=== PATIENT | female | born 1930 | race Asian ===

== ENCOUNTER 2017-03-15 05:31 | Emergency (ER) | payer OTHER ==
[~2017-03-15 05:31] MED LIST: ALPHAGAN P5 M1 OU; AMLODIPINE BES2.5 M1 PO; BETAGAN5 ML OD; BREO ELLIPTA1 PO1 IH; CIPRO500 MG PO; COL100 PO; GLUCOTROL5 MG PO; LOSARTAN POTASS1 TA6 PO; NORCO1 TA2 PO; ONGLYZA5 M1 PO; SYNTHROID0.075 MG PO; TRA100 PO; VITAMIN D32000 I2 PO; ZOCOR20 MG PO
[2017-03-15 06:52] LABS: BASOPHIL % 0.2 % (0-2); PLATELET COUNT 173 x10^3mcL (130-400); RED CELL DISTRIBUTION WIDTH 13.1 % (11.5-14.5)
[2017-03-15 07:09] LABS: CARBON DIOXIDE 29.4 mmol/L (21-32); CHLORIDE SERUM 99 mmol/L (98-107); GLUCOSE SERUM 157 mg/dL (74-106); POTASSIUM SERUM 4.1 mmol/L (3.5-5.1); SODIUM SERUM 135 mmol/L (136-145)
[2017-03-15 07:25] LABS: ALBUMIN 3.4 g/dL (3.4-5.0); ALKALINE PHOSPHATASE 41 U/L (46-116); ALT/SGPT 49 U/L (14-59); AST/SGOT 43 U/L (15-37); BILIRUBIN TOTAL 0.52 mg/dL (0.20-1.00); TOTAL PROTEIN, SERUM 7.9 g/dL (6.4-8.2)
[2017-03-15 09:03] VITALS: BP 132/74
[2017-03-16] MEDS ORDERED: SIMVASTATIN20 M1 PO (19:44)
[2017-03-16] MEDS ORDERED: LABETALOL HYDR300 MG PO (19:44)
[2017-03-16] MEDS ORDERED: GLIPIZIDE10 M2 PO (19:45)
[2017-03-16] MEDS ORDERED: LOSARTAN POTASS1 TAB PO (19:45)
[2017-03-16] MEDS ORDERED: GABAPENTIN100 M2 PO (19:46)
[2017-03-16] MEDS ORDERED: LANTUS SOLOS100 U/M1 (19:46)
[2017-03-16] MEDS ORDERED: TIMOPTIC-XE OCUM5 M2 OU (19:47)
[2017-03-16] MEDS ORDERED: NOVOLOG100 U/ML SC (19:47)
[2017-03-16] MEDS ORDERED: LATANOPROST (19:47)
[2017-03-16] MEDS ORDERED: SIMBRINZA8 ML OP (19:47)
[2017-03-16] MEDS ORDERED: PROAIR HFA8.5 GM IH (19:48)
[2017-03-16] MEDS ORDERED: ANORO ELLIPTA1 POW IH (19:48)
[2017-03-16] MEDS ORDERED: MASON NATURAL1000 IU PO (19:48)
== END 2017-03-15 09:03 | disposition home or self-care (01) ==
LOC: ED 05:31
PROVIDERS: Emergency Medicine
DX: J44.1 Chronic obstructive pulmonary disease with (acute) exacerbation (principal); J18.1 Lobar pneumonia, unspecified organism; E11.22 Type 2 diabetes mellitus with diabetic chronic kidney disease; I12.9 Hypertensive chronic kidney disease with stage 1 through stage 4 chronic kidney disease, or unspecified chronic kidney disease; N18.9 Chronic kidney disease, unspecified; E07.9 Disorder of thyroid, unspecified; Z88.0 Allergy status to penicillin; Z88.1 Allergy status to other antibiotic agents; Z88.8 Allergy status to other drugs, medicaments and biological substances
CPT/HCPCS: J1100; J7030; J7613; J7644; Q0092

== ENCOUNTER 2017-03-16 18:57 | Inpatient (IN) | payer OTHER ==
[~2017-03-16] VITALS: Ht 162.6 cm; Wt 78.5 kg
[2017-03-16 19:20] VITALS: Ht 162.6 cm; Wt 78.5 kg
[2017-03-16] MEDS ORDERED: SIMVASTATIN20 M1 PO (19:44)
[2017-03-16] MEDS ORDERED: LABETALOL HYDR300 MG PO (19:44)
[2017-03-16] MEDS ORDERED: LOSARTAN POTASS1 TAB PO (19:45)
[2017-03-16] MEDS ORDERED: GLIPIZIDE10 M2 PO (19:45)
[2017-03-16] MEDS ORDERED: GABAPENTIN100 M2 PO (19:46)
[2017-03-16] MEDS ORDERED: LANTUS SOLOS100 U/M1 (19:46)
[2017-03-16] MEDS ORDERED: TIMOPTIC-XE OCUM5 M2 OU (19:47)
[2017-03-16] MEDS ORDERED: LATANOPROST (19:47)
[2017-03-16] MEDS ORDERED: NOVOLOG100 U/ML SC (19:47)
[2017-03-16] MEDS ORDERED: SIMBRINZA8 ML OP (19:47)
[2017-03-16] MEDS ORDERED: MASON NATURAL1000 IU PO (19:48)
[2017-03-16] MEDS ORDERED: PROAIR HFA8.5 GM IH (19:48)
[2017-03-16] MEDS ORDERED: ANORO ELLIPTA1 POW IH (19:48)
[2017-03-16 20:58] LABS: PLATELET COUNT 206 x10^3mcL (130-400); RED CELL DISTRIBUTION WIDTH 13.1 % (11.5-14.5)
[2017-03-16 20:59] LABS: BASOPHIL % 0 % (0-2); CALCIUM 8.4 mg/dL (8.5-10.1); CARBON DIOXIDE 29.8 mmol/L (21-32); CHLORIDE SERUM 100 mmol/L (98-107); CREATININE SERUM 2.1 mg/dL (0.6-1.0); GLUCOSE SERUM 177 mg/dL (74-106); POTASSIUM SERUM 4.8 mmol/L (3.5-5.1); SODIUM SERUM 137 mmol/L (136-145)
[2017-03-16 21:03] LABS: ALKALINE PHOSPHATASE 42 U/L (46-116); ALT/SGPT 43 U/L (14-59); AST/SGOT 35 U/L (15-37); BILIRUBIN TOTAL 0.3 mg/dL (0.20-1.00); TOTAL PROTEIN, SERUM 7.8 g/dL (6.4-8.2)
[2017-03-16 21:07] LABS: ALBUMIN 3.3 g/dL (3.4-5.0)
[2017-03-16 22:21] LABS: CHOLESTEROL/HDL RATIO 3.1; MAGNESIUM 2.2 mg/dL (1.8-2.4); PHOSPHOROUS 2.9 mg/dL (2.5-4.9)
[2017-03-16 22:27] VITALS: BP 158/62
[2017-03-16 22:30] LABS: T3 TOTAL 0.65 ng/mL
[2017-03-16 22:42] LABS: FREE T4 1.15 ng/dL (0.76-1.46); FREE THYROXINE INDEX 3.6 ug/dL (1.4-4.5); T4(THYROXINE) 9.7 ug/dL (4.7-13.3)
[2017-03-17 01:40] VITALS: BP 158/62
[2017-03-17 01:55] LABS: microscopic required? YES; urine erythrocyte TRACE (NEGATIVE)
[2017-03-17 06:26] VITALS: BP 126/57
[2017-03-17 07:11] LABS: PLATELET COUNT 209 x10^3mcL (130-400); RED CELL DISTRIBUTION WIDTH 13.2 % (11.5-14.5)
[2017-03-17 07:18] LABS: BASOPHIL % 0 % (0-2)
[2017-03-17 07:23] LABS: CALCIUM 7.6 mg/dL (8.5-10.1); CARBON DIOXIDE 28.2 mmol/L (21-32); CHLORIDE SERUM 104 mmol/L (98-107); CREATININE SERUM 1.9 mg/dL (0.6-1.0); GLUCOSE SERUM 247 mg/dL (74-106); POTASSIUM SERUM 4.8 mmol/L (3.5-5.1); SODIUM SERUM 140 mmol/L (136-145)
[2017-03-17 08:55] VITALS: BP 159/69
[2017-03-17 13:45] VITALS: BP 140/69
[2017-03-17 18:42] VITALS: BP 142/71
[2017-03-17 22:46] VITALS: BP 132/72
[2017-03-18 05:11] VITALS: BP 118/61
[2017-03-18 06:32] LABS: PLATELET COUNT 176 x10^3mcL (130-400); RED CELL DISTRIBUTION WIDTH 13.1 % (11.5-14.5)
[2017-03-18 06:47] LABS: BASOPHIL % 0 % (0-2)
[2017-03-18 06:50] LABS: CALCIUM 8.1 mg/dL (8.5-10.1); CARBON DIOXIDE 27.3 mmol/L (21-32); CHLORIDE SERUM 103 mmol/L (98-107); CREATININE SERUM 1.5 mg/dL (0.6-1.0); GLUCOSE SERUM 213 mg/dL (74-106); POTASSIUM SERUM 4.4 mmol/L (3.5-5.1); SODIUM SERUM 139 mmol/L (136-145)
[2017-03-18 10:26] VITALS: BP 127/67
[2017-03-18 13:33] VITALS: BP 112/64
[2017-03-18 17:59] VITALS: BP 139/59
[2017-03-18 21:28] VITALS: BP 155/77
[2017-03-19 05:21] VITALS: BP 136/67
[2017-03-19 09:07] VITALS: BP 138/62
[2017-03-19 14:13] VITALS: BP 133/67
[2017-03-19] MEDS ORDERED: MONTELUKAST SOD10 M1 PO ×2 (16:38→18:02)
[2017-03-19] MEDS ORDERED: COUGH100 MG/5 M PO ×3 (16:39→18:02)
[2017-03-19] MEDS ORDERED: NOR5 PO ×2 (16:39→18:02)
[2017-03-19 16:53] LABS: BASOPHIL % 0.2 % (0-2); PLATELET COUNT 190 x10^3mcL (130-400); RED CELL DISTRIBUTION WIDTH 13.1 % (11.5-14.5)
[2017-03-19 17:14] LABS: CALCIUM 8.4 mg/dL (8.5-10.1); CARBON DIOXIDE 30.9 mmol/L (21-32); CHLORIDE SERUM 103 mmol/L (98-107); CREATININE SERUM 1.5 mg/dL (0.6-1.0); GLUCOSE SERUM 106 mg/dL (74-106); POTASSIUM SERUM 3.7 mmol/L (3.5-5.1); SODIUM SERUM 142 mmol/L (136-145)
[2017-03-19] MEDS ORDERED: IPRATROPIUM BROM3 M2 IH ×2 (17:54→18:02)
[2017-03-19 17:59] VITALS: BP 147/67
[2017-03-19 18:09] VITALS: BP 147/67
== END 2017-03-19 18:40 | disposition home or self-care (01) | DRG 190 ==
LOC: ED 18:57 → DU 21:22 → MU 03-19 09:33
PROVIDERS: Emergency Medicine; Family Medicine
DX: J44.1 Chronic obstructive pulmonary disease with (acute) exacerbation (principal); N17.0 Acute kidney failure with tubular necrosis; J45.901 Unspecified asthma with (acute) exacerbation; N39.0 Urinary tract infection, site not specified; E44.0 Moderate protein-calorie malnutrition; D68.69 Other thrombophilia; E11.65 Type 2 diabetes mellitus with hyperglycemia; E11.59 Type 2 diabetes mellitus with other circulatory complications; I10 Essential (primary) hypertension; E78.5 Hyperlipidemia, unspecified; E03.9 Hypothyroidism, unspecified; Z79.4 Long term (current) use of insulin; Z68.32 Body mass index [BMI] 32.0-32.9, adult
CPT/HCPCS: 82962; 83880; 84439; 94150; J1815; J2920; J2930; J7030; J7613; J7620; J7626; J7644; Q0092

== ENCOUNTER 2018-02-07 15:16 | Inpatient (IN) | payer OTHER ==
[~2018-02-07] VITALS: Ht 157.5 cm; Wt 78.9 kg
[~2018-02-07 15:16] MED LIST changes: +ANORO ELLIPTA1 POW IH; +COUGH100 MG/5 M PO; +GABAPENTIN100 M2 PO; +GLIPIZIDE10 M2 PO; +IPRATROPIUM BROM3 M2 IH; +LABETALOL HYDR300 MG PO; +LANTUS SOLOS100 U/M1; +LATANOPROST; +LOSARTAN POTASS1 TAB PO; +MASON NATURAL1000 IU PO; +MONTELUKAST SOD10 M1 PO; +NOR5 PO; +NOVOLOG100 U/ML SC; +PROAIR HFA8.5 GM IH; +SIMBRINZA8 ML OP; +SIMVASTATIN20 M1 PO; +TIMOPTIC-XE OCUM5 M2 OU
[2018-02-07 15:21] VITALS: Ht 157.5 cm; Wt 78.9 kg
[2018-02-07 16:01] LABS: PLATELET COUNT 208 x10^3mcL (130-400); RED CELL DISTRIBUTION WIDTH 13.9 % (11.5-14.5)
[2018-02-07 16:05] LABS: BASOPHIL % 0 % (0-2)
[2018-02-07 16:43] LABS: CALCIUM 8.4 mg/dL (8.5-10.1); CARBON DIOXIDE 28.3 mmol/L (21-32); CHLORIDE SERUM 101 mmol/L (98-107); GLUCOSE SERUM 199 mg/dL (74-106); POTASSIUM SERUM 4.4 mmol/L (3.5-5.1); SODIUM SERUM 137 mmol/L (136-145)
[2018-02-07 16:48] LABS: ALKALINE PHOSPHATASE 53 U/L (46-116); ALT/SGPT 27 U/L (14-59); AST/SGOT 16 U/L (15-37); BILIRUBIN TOTAL 0.55 mg/dL (0.20-1.00); TOTAL PROTEIN, SERUM 7.6 g/dL (6.4-8.2)
[2018-02-07 16:49] LABS: ALBUMIN 3.3 g/dL (3.4-5.0)
[2018-02-07 17:21] LABS: UA SPECIFIC GRAVITY 1.015 (1.005-1.035); microscopic required? YES; urine erythrocyte TRACE (NEGATIVE)
[2018-02-07] MEDS ORDERED: LABETALOL HYDR300 MG PO (19:20)
[2018-02-07] MEDS ORDERED: HUMALOG100 UNIT/1 (19:23)
[2018-02-07] MEDS ORDERED: FLUOCINONIDE60 ML (19:24)
[2018-02-07] MEDS ORDERED: ANORO ELLIPTA1 POW IH (19:24)
[2018-02-07 20:18] VITALS: BP 145/51
[2018-02-07 22:30] VITALS: BP 145/51
[2018-02-08 05:25] VITALS: BP 121/61
[2018-02-08 06:56] LABS: PLATELET COUNT 187 x10^3mcL (130-400)
[2018-02-08 07:18] LABS: CALCIUM 8.2 mg/dL (8.5-10.1); CARBON DIOXIDE 27.5 mmol/L (21-32); CHLORIDE SERUM 103 mmol/L (98-107); CREATININE SERUM 1.7 mg/dL (0.6-1.0); GLUCOSE SERUM 160 mg/dL (74-106); POTASSIUM SERUM 4.2 mmol/L (3.5-5.1); SODIUM SERUM 140 mmol/L (136-145)
[2018-02-08 08:23] VITALS: BP 117/58
[2018-02-08 10:00] LABS: BAND NEUTROPHIL 13 % (0-10); BASOPHIL 0 % (0-2); MONOCYTE 4 % (0-7); SEGMENTED NEUTROPHILS 73 % (37-75)
[2018-02-08 10:01] LABS: PLATELET MORPHOLOGY GIANT PLATELET SEEN; rbc morphology (normal/abnorm) ABNORMAL (NORMAL); tear drop cell (dacryocyte) 1+
[2018-02-08 13:08] VITALS: BP 104/43
[2018-02-08 18:51] VITALS: BP 139/64
[2018-02-08 21:06] VITALS: BP 119/58
[2018-02-09 05:30] VITALS: BP 114/72
[2018-02-09 07:12] LABS: CALCIUM 8.3 mg/dL (8.5-10.1); CHLORIDE SERUM 104 mmol/L (98-107); CREATININE SERUM 1.7 mg/dL (0.6-1.0); GLUCOSE SERUM 97 mg/dL (74-106); POTASSIUM SERUM 4.6 mmol/L (3.5-5.1); SODIUM SERUM 141 mmol/L (136-145)
[2018-02-09 07:22] LABS: BASOPHIL % 0.2 % (0-2); PLATELET COUNT 179 x10^3mcL (130-400); RED CELL DISTRIBUTION WIDTH 14.3 % (11.5-14.5)
[2018-02-09 08:12] VITALS: BP 142/66
[2018-02-09 12:15] VITALS: BP 139/60
[2018-02-09 16:04] VITALS: BP 117/67
[2018-02-09 21:22] VITALS: BP 144/72
[2018-02-10] VITALS (7 sets, daily range): BP systolic 135–171; BP diastolic 60–81
[2018-02-10 06:14] LABS: BASOPHIL % 0.1 % (0-2); PLATELET COUNT 202 x10^3mcL (130-400); RED CELL DISTRIBUTION WIDTH 14.2 % (11.5-14.5)
[2018-02-10 06:39] LABS: CALCIUM 8.4 mg/dL (8.5-10.1); CARBON DIOXIDE 30.3 mmol/L (21-32); CHLORIDE SERUM 105 mmol/L (98-107); CREATININE SERUM 1.6 mg/dL (0.6-1.0); GLUCOSE SERUM 130 mg/dL (74-106); SODIUM SERUM 141 mmol/L (136-145)
[2018-02-11 06:01] VITALS: BP 158/75
[2018-02-11 10:19] VITALS: BP 130/67
[2018-02-11 13:53] VITALS: BP 138/63
[2018-02-11 16:27] VITALS: BP 137/63
[2018-02-11] MEDS ORDERED: LANTI SC (17:05)
[2018-02-11] MEDS ORDERED: HUMALOG100 UNIT/1 (17:06)
[2018-02-11] MEDS ORDERED: ROC1I IV (17:50)
[2018-02-11] MEDS ORDERED: VIBRAMYCIN HYC100 MG IV (17:51)
== END 2018-02-11 20:45 | disposition home or self-care (01) | DRG 871 ==
LOC: ED 15:16 → DU 19:00
PROVIDERS: Emergency Medicine; Internal Medicine
DX: A41.9 Sepsis, unspecified organism (principal); J69.0 Pneumonitis due to inhalation of food and vomit; J96.01 Acute respiratory failure with hypoxia; N39.0 Urinary tract infection, site not specified; I12.9 Hypertensive chronic kidney disease with stage 1 through stage 4 chronic kidney disease, or unspecified chronic kidney disease; N18.9 Chronic kidney disease, unspecified; N28.9 Disorder of kidney and ureter, unspecified; E03.9 Hypothyroidism, unspecified; E11.65 Type 2 diabetes mellitus with hyperglycemia; J44.9 Chronic obstructive pulmonary disease, unspecified; J45.909 Unspecified asthma, uncomplicated; Z68.31 Body mass index [BMI] 31.0-31.9, adult
CPT/HCPCS: 82962; 87804; 94150; 97116-GP; J0696; J1815; J3490; J3535; J7030; J7050; J7620; Q0092

== ENCOUNTER 2018-03-11 01:08 | Inpatient (IN) | payer OTHER ==
[~2018-03-11] VITALS: Ht 157.5 cm; Wt 77.4 kg
[~2018-03-11 01:08] MED LIST changes: +FLUOCINONIDE60 ML; +HUMALOG100 UNIT/1; +LANTI SC; +ROC1I IV; +VIBRAMYCIN HYC100 MG IV
[2018-03-11] MEDS ORDERED: FISH OIL 1,0001 EAC1 PO (01:58)
[2018-03-11] MEDS ORDERED: TRELEGY ELLIPT1 EACH IH (01:59)
[2018-03-11] MEDS ORDERED: HUMALOG JU100 UNIT/1 SQ (02:00)
[2018-03-11 02:20] LABS: PLATELET COUNT 227 x10^3mcL (130-400); RED CELL DISTRIBUTION WIDTH 13.5 % (11.5-14.5)
[2018-03-11 02:25] LABS: CALCIUM 8.7 mg/dL (8.5-10.1); CARBON DIOXIDE 30.5 mmol/L (21-32); CHLORIDE SERUM 103 mmol/L (98-107); CREATININE SERUM 1.8 mg/dL (0.6-1.0); GLUCOSE SERUM 182 mg/dL (74-106); POTASSIUM SERUM 4.5 mmol/L (3.5-5.1); SODIUM SERUM 141 mmol/L (136-145)
[2018-03-11 02:32] LABS: ALBUMIN 3.6 g/dL (3.4-5.0); ALKALINE PHOSPHATASE 56 U/L (46-116); ALT/SGPT 30 U/L (14-59); AST/SGOT 25 U/L (15-37); BILIRUBIN TOTAL 0.57 mg/dL (0.20-1.00); TOTAL PROTEIN, SERUM 7.5 g/dL (6.4-8.2)
[2018-03-11 02:33] LABS: BAND NEUTROPHIL 1 % (0-10); MONOCYTE 7 % (0-7); SEGMENTED NEUTROPHILS 89 % (37-75)
[2018-03-11 02:36] LABS: rbc morphology (normal/abnorm) NORMAL (NORMAL)
[2018-03-11 02:37] LABS: PLATELET MORPHOLOGY PLATELETS NORMAL
[2018-03-11 04:46] LABS: UA SPECIFIC GRAVITY <=1.005 (1.005-1.035); microscopic required? YES; urine erythrocyte NEGATIVE (NEGATIVE)
[2018-03-11 10:25] VITALS: BP 103/54
[2018-03-11 16:26] VITALS: BP 109/48
[2018-03-11 20:47] VITALS: BP 106/52
[2018-03-12 06:21] VITALS: BP 116/60
[2018-03-12 07:13] LABS: PLATELET COUNT 221 x10^3mcL (130-400)
[2018-03-12 07:15] LABS: BASOPHIL % 0 % (0-2)
[2018-03-12 07:20] LABS: CALCIUM 8.2 mg/dL (8.5-10.1); CARBON DIOXIDE 28.6 mmol/L (21-32); CHLORIDE SERUM 103 mmol/L (98-107); CREATININE SERUM 1.9 mg/dL (0.6-1.0); GLUCOSE SERUM 132 mg/dL (74-106); POTASSIUM SERUM 4.2 mmol/L (3.5-5.1); SODIUM SERUM 140 mmol/L (136-145)
[2018-03-12 09:53] VITALS: BP 12/51; BP 121/51
[2018-03-12 10:56] VITALS: Ht 157.5 cm; Wt 77.4 kg
[2018-03-12 15:00] VITALS: BP 115/60
[2018-03-12 15:01] VITALS: BP 115/60
== END 2018-03-12 15:26 | disposition home or self-care (01) | DRG 683 ==
LOC: ED 01:08 → MU 05:57 → DU 05:57 → ED 05:57 → MU 09:00
PROVIDERS: Emergency Medicine; ADMIT Internal Medicine
DX: I12.9 Hypertensive chronic kidney disease with stage 1 through stage 4 chronic kidney disease, or unspecified chronic kidney disease (principal); N17.9 Acute kidney failure, unspecified; N39.0 Urinary tract infection, site not specified; E87.1 Hypo-osmolality and hyponatremia; B96.20 Unspecified Escherichia coli [E. coli] as the cause of diseases classified elsewhere; N18.3 Chronic kidney disease, stage 3 (moderate); E11.22 Type 2 diabetes mellitus with diabetic chronic kidney disease; E11.43 Type 2 diabetes mellitus with diabetic autonomic (poly)neuropathy; K31.84 Gastroparesis; K52.9 Noninfective gastroenteritis and colitis, unspecified; L27.0 Generalized skin eruption due to drugs and medicaments taken internally; T36.1X5A Adverse effect of cephalosporins and other beta-lactam antibiotics, initial encounter; E03.9 Hypothyroidism, unspecified; Z16.24 Resistance to multiple antibiotics; Z79.4 Long term (current) use of insulin; Y92.230 Patient room in hospital as the place of occurrence of the external cause
CPT/HCPCS: 82962; 83880; J0696; J1200; J2765; J7030; Q0092

== ENCOUNTER 2018-05-27 13:41 | Inpatient (IN) | payer OTHER ==
[~2018-05-27] VITALS: Ht 157.5 cm; Wt 76.7 kg
[~2018-05-27 13:41] MED LIST changes: +FISH OIL 1,0001 EAC1 PO; +HUMALOG JU100 UNIT/1 SQ; +TRELEGY ELLIPT1 EACH IH
[2018-05-27 13:47] VITALS: Ht 157.5 cm; Wt 76.7 kg
[2018-05-27 14:42] LABS: BASOPHIL % 0.3 % (0-2); PLATELET COUNT 223 x10^3mcL (130-400)
[2018-05-27 14:52] LABS: CALCIUM 8.6 mg/dL (8.5-10.1); CARBON DIOXIDE 30.1 mmol/L (21-32); CHLORIDE SERUM 101 mmol/L (98-107); CREATININE SERUM 1.7 mg/dL (0.6-1.0); GLUCOSE SERUM 125 mg/dL (74-106); POTASSIUM SERUM 4.5 mmol/L (3.5-5.1); SODIUM SERUM 137 mmol/L (136-145)
[2018-05-27 14:56] LABS: ALKALINE PHOSPHATASE 47 U/L (46-116); ALT/SGPT 35 U/L (14-59); AST/SGOT 22 U/L (15-37); BILIRUBIN TOTAL 0.5 mg/dL (0.20-1.00); CHOLESTEROL 161 mg/dL (<200); HDL CHOLESTEROL 58 mg/dL (40-60); TOTAL PROTEIN, SERUM 7.6 g/dL (6.4-8.2)
[2018-05-27 14:57] LABS: ALBUMIN 3.3 g/dL (3.4-5.0)
[2018-05-27 16:08] LABS: UA SPECIFIC GRAVITY 1.015 (1.005-1.035); microscopic required? YES; urine erythrocyte NEGATIVE (NEGATIVE)
[2018-05-27 16:19] VITALS: BP 151/84
[2018-05-27 18:01] VITALS: BP 169/76
[2018-05-27 18:19] VITALS: BP 169/76
[2018-05-27 20:40] VITALS: BP 133/58
[2018-05-28 05:47] VITALS: BP 148/74
[2018-05-28 06:29] LABS: CALCIUM 8.3 mg/dL (8.5-10.1); CARBON DIOXIDE 28.4 mmol/L (21-32); CHLORIDE SERUM 103 mmol/L (98-107); CREATININE SERUM 1.7 mg/dL (0.6-1.0); GLUCOSE SERUM 229 mg/dL (74-106); POTASSIUM SERUM 4.8 mmol/L (3.5-5.1); SODIUM SERUM 137 mmol/L (136-145)
[2018-05-28 06:57] LABS: PLATELET COUNT 217 x10^3mcL (130-400); RED CELL DISTRIBUTION WIDTH 12.6 % (11.5-14.5)
[2018-05-28 07:04] LABS: BASOPHIL % 0 % (0-2)
[2018-05-28 09:24] VITALS: BP 152/83
[2018-05-28 14:14] VITALS: BP 133/58
[2018-05-28 16:43] VITALS: BP 133/60
[2018-05-28 21:24] VITALS: BP 150/73
[2018-05-29 05:44] VITALS: BP 129/50
[2018-05-29 06:16] LABS: CALCIUM 8.5 mg/dL (8.5-10.1); CARBON DIOXIDE 32.8 mmol/L (21-32); CHLORIDE SERUM 104 mmol/L (98-107); CREATININE SERUM 1.7 mg/dL (0.6-1.0); GLUCOSE SERUM 203 mg/dL (74-106); POTASSIUM SERUM 4.7 mmol/L (3.5-5.1); SODIUM SERUM 138 mmol/L (136-145)
[2018-05-29 06:32] LABS: BASOPHIL % 0 % (0-2); PLATELET COUNT 228 x10^3mcL (130-400); RED CELL DISTRIBUTION WIDTH 13.5 % (11.5-14.5)
[2018-05-29 08:23] VITALS: BP 161/69
[2018-05-29 09:34] VITALS: BP 161/69
[2018-05-30] MEDS ORDERED: LABETALOL HYDR300 MG PO (22:21)
== END 2018-05-29 17:20 | disposition home or self-care (01) | DRG 189 ==
LOC: ED 13:41 → DU 15:58
PROVIDERS: Emergency Medicine; ADMIT Internal Medicine
DX: J96.01 Acute respiratory failure with hypoxia (principal); J45.901 Unspecified asthma with (acute) exacerbation; J20.9 Acute bronchitis, unspecified; E11.65 Type 2 diabetes mellitus with hyperglycemia; E86.0 Dehydration; R09.1 Pleurisy; E03.9 Hypothyroidism, unspecified; I10 Essential (primary) hypertension; M19.90 Unspecified osteoarthritis, unspecified site; Z68.30 Body mass index [BMI] 30.0-30.9, adult; Z79.4 Long term (current) use of insulin
CPT/HCPCS: 82962; 87804; 94150; 97110-GP; 97116-GP; 97530-GP; J0456; J1200; J1644; J1815; J2920; J2930; J7030; J7050; J7613; J7620; J7626

== ENCOUNTER 2018-05-30 18:59 | Inpatient (IN) | payer OTHER ==
[~2018-05-30] VITALS: Ht 157.5 cm; Wt 79.4 kg
[2018-05-30 19:07] VITALS: Ht 157.5 cm; Wt 79.4 kg
--- NOTE | 2018-05-30 19:20 | NUR ---
PT C/O SOB X8 DAYS. [place] [facility] [place] D/C'ED THE NEXT DAY W/ ZITHRO AND PREDNISONE. PT STS THAT SHE HAS NOT FELT ANY BETTER W/ MEDICATION, PROMPTING HER TO COME BACK. AUDIBLE WHEEZES HEARD THROUGHOUT ALL LUNG BEARD, LABORED BREATHING NOTED, PT IN TRIPOD POSITION ON SIDE OF BED, PRODUCTIVE COUGH NOTED. PT REPORTS NO OTHER S/S. PT DENIES N/V/D, DENIES FEVER/CHILLS, DENIES SYNCOPE. 20G IV INSERTED IN R AC, PT PLACED ON EMS EDUCATOR AND PULSE OX, PT PLACED ON 2L 02 VIA NC. PT SATURATING AT 97%. WILL CONTINUE TO MONITOR. MD AT BEDSIDE FOR EXAM.
[2018-05-30 20:06] LABS: PLATELET COUNT 283 x10^3mcL (130-400); RED CELL DISTRIBUTION WIDTH 13.8 % (11.5-14.5)
[2018-05-30 20:10] LABS: BASOPHIL % 0 % (0-2)
[2018-05-30 20:16] LABS: CALCIUM 8.6 mg/dL (8.5-10.1); CARBON DIOXIDE 27.5 mmol/L (21-32); CHLORIDE SERUM 103 mmol/L (98-107); CREATININE SERUM 1.7 mg/dL (0.6-1.0); GLUCOSE SERUM 224 mg/dL (74-106); POTASSIUM SERUM 4.4 mmol/L (3.5-5.1); SODIUM SERUM 139 mmol/L (136-145)
--- NOTE | 2018-05-30 20:20 | NUR ---
RT AT BEDSIDE FOR BREATHING TREATMENT
--- NOTE | 2018-05-30 20:21 | NUR ---
PT A&OX4, SITTING IN POSITION OF COMFORT, HOB ELEVATED, 2 BED RAILS UP, BED IN LOW AND LOCKED POSITION, CALL LIGHT W/IN REACH, FAMILY AT BEDSIDE.
[2018-05-30 20:22] LABS: ALKALINE PHOSPHATASE 52 U/L (46-116); ALT/SGPT 49 U/L (14-59); AST/SGOT 26 U/L (15-37); BILIRUBIN TOTAL 0.32 mg/dL (0.20-1.00); TOTAL PROTEIN, SERUM 7.6 g/dL (6.4-8.2)
[2018-05-30 20:24] LABS: ALBUMIN 3.3 g/dL (3.4-5.0)
--- NOTE | 2018-05-30 21:28 | NUR ---
PT AWAKE AND ALERT, HOB ELEVATED, 2 BED RAILS UP, BED IN LOW AND LOCKED POSITION, CALL LIGHT W/IN REACH. 02 SAT 94% ON 3L VIA NC. AUDIBLE WHEEZES STILL PRESENT. FAMILY AT BEDSIDE. MD MADE AWARE OF RESP STATUS.
--- NOTE | 2018-05-30 21:48 | NUR ---
MEDICATION ADMINISTERED PER MD ORDER
[2018-05-30] MEDS ORDERED: LABETALOL HYDR300 MG PO (22:21)
--- NOTE | 2018-05-30 22:29 | NUR ---
REPORT GIVEN TO OMARI OLIVIA
[2018-05-30 22:42] VITALS: BP 144/70
--- NOTE | 2018-05-30 22:56 | NUR ---
PT A/O X4. PT ORIENTED TO ROOM. RESOURCE NURSE AT BEDSIDE. NO DISTRESS NOTED AT THIS TIME. CALL LIGHT WITHIN REACH. WILL CONTINUE TO MONITOR.
[2018-05-30 23:32] VITALS: BP 167/78
--- NOTE | 2018-05-30 23:48 | NUR ---
RECEIVED PT FROM ER. PT ADMIT FOR COPD EXACERBATION, PT IS A/O X4, VERBAL RESPONSIVE, ABLE TO TELL WHAT SHE NEEDS. LUNG SOUND CONGESTED RONNIE, CONTANTLY COUGH WITH WHITE PRODUCTIVE SPUTUM, PT DENY ANY SOB AT THIS MOMENT. PO2 94% IN 2L/MIN O2 VIA NC/, PT IS ON TELE 17, NSR, DENY ANY PAIN OR DISCOMFORT, BOWEL SOUND PRESENT ALL 4 QUADRANTS, NO DISTENTION, NO TENDER. PEDAL PULSE PRESENT BOTH FEET, +1 EDEMA BLE. PT HAS DARK DISCOLORATION AT LLE WITH MULTIPLE DRY SCABS. IV AT RIGHT AC, NO LEAKING, NO INFILTRATION. ALL ADLS ASSIST, ALL NEED MET, CALL LIGHT IN REACH, WILL CONTINUE TO MONITOR.
--- NOTE | 2018-05-31 01:25 | NUR ---
PT RESTING IN BED. NO S/S OF DISTRESS AT THIS TIME. BED IN LOWEST POSITION. CALL LIGHT WITHIN REACH. WILL CONTINUE TO MONITOR.
[2018-05-31 06:15] VITALS: BP 159/69
--- NOTE | 2018-05-31 06:52 | NUR ---
PT SITTING AT EDGE OF BED. NO COMPLIANT OF SOB THUS FAR. IV SITE PATENT AND INTACT. CALL LIGHT WITHIN REACH. WILL ENDORSE CARE TO ON COMING NURSE.
[2018-05-31 07:07] LABS: BASOPHIL % 0 % (0-2); PLATELET COUNT 230 x10^3mcL (130-400); RED CELL DISTRIBUTION WIDTH 13.6 % (11.5-14.5)
[2018-05-31 07:14] LABS: CALCIUM 8.3 mg/dL (8.5-10.1); CARBON DIOXIDE 30.4 mmol/L (21-32); CHLORIDE SERUM 105 mmol/L (98-107); CREATININE SERUM 1.6 mg/dL (0.6-1.0); GLUCOSE SERUM 228 mg/dL (74-106); SODIUM SERUM 141 mmol/L (136-145)
--- NOTE | 2018-05-31 07:50 | NUR ---
RC'D PT RESTING IN BED WITH NO APPARENT SIGNS OF DISTRESS. A/A/O/X4, SPEECH CLEAR AND APPROPRIATE. DENIES SEVERINO/DIZZINESS. ON TELE, DAQUAN CHEST PAIN/OPRESSURE. PALP PULSES, EDEMA NTOED TO BLE. RESPIRATIONS EQUAL AND UNLABORED. CONGESTION NOTED UPON AUSCULTATION. ON 2L O2 VIA NC, DENIES SOB. ABDOMEN SOFT AND NONTENDER. ACTIVE BS. DENIES N/V. VOIDS FREELY, INCONTINENT AT TIMES. GENERALIZED WEAKNESS. PT DENIES PAIN AT THIS TIME. IV PATENT AND INTACT. BED IN LOW POSITION. CALL LIGHT IN REACH. WILL CONTINUE TO MONITOR
--- NOTE | 2018-05-31 08:08 | NUR ---
Nutrition Note: NSG trigger received in dietary office on 05/31/18. Pt. admitted with dx COPD exacerbation per H and P documentations and does not meet high risk criteria. Pt. will be assessed as moderate risk with initial assessment due 06/02-06/04/18.
--- NOTE | 2018-05-31 08:15 | NUR ---
AM MEDICATIONS GIVEN. PT TOLERATED WELL. RESPIRATIONS EQUAL AND UNLABORED. DENIES SOB/PAIN. BED IN LOW POSITION. CALL LIGHT INR EACH. WILL CONTINUE TO [facility]
[2018-05-31 10:11] VITALS: BP 139/53
--- NOTE | 2018-05-31 11:30 | NUR ---
PT RESTING IN BED WITH NO APPARENT SIGNS OF DISTRESS. RESPIRATIONS EQUAL AND UNLABORED. ON 2L O2 VIA NC, DENIES SOB. BED IN LOW POSITION. CALL LIGHT IN REACH. WILL COTINUE TO MONITOR
[2018-05-31 14:00] VITALS: BP 134/59
[2018-05-31 18:00] VITALS: BP 138/63
--- NOTE | 2018-05-31 18:30 | NUR ---
PT RESTING IN BED WITH NO APPARENT SIGNS OF DISTRESS. ON TELE, DENIES CHEST PAIN/PRESSURE. RESPIRATIONS EQUAL AND UNLABORED. CONGESTION NOTED. ON 2L O2 VIA NC, DENIES SOB. GENERALIZED WEAKNESS. NO ACUTE SKIN CHANGES NOTED AT THIS TIME. PT DENIES PAIN AT THIS TIME. IV PATENT AND INTACT. BED IN LOW POSIITON. CALL LIGHT IN REACH. WILL ENDORSE TO [place] F[employer]ER RN
--- NOTE | 2018-05-31 19:25 | NUR ---
RECIEVED PT FROM PREVIOUS SHIFT. PT RESTING IN BED A/O X4. NO S/S OF DISTRESS AT THIS TIME. CALL LIGHT WITHIN REACH. BED IN LOWEST POSITION. WILL CONTINUE TO MONITOR.
[2018-05-31 21:23] VITALS: BP 172/77
--- NOTE | 2018-05-31 22:14 | NUR ---
CALLED BY PHARMACY TO ASK DR. LEE IF HE WANTS TO CONTINUE MACROBID PO FOR THE PT EVEN IF THE PATIENTS RENAL PANEL IS BELOW 60. DR. LEE SAID YES TO VERIFY MEDICATION TO BE USED FOR THE PATIENTS UTI. NEAL OF PHARMACY INFORMED. WILL CONTINUE TO MONITOR.
--- NOTE | 2018-05-31 22:18 | NUR ---
PT C/O COUGH. DR. LEE NOTIFIED AND ORDERED ROBITUSSIN PO. ORDERS CARRIED OUT. WILL CONTINUE TO MONITOR.
--- NOTE | 2018-05-31 22:51 | NUR ---
PT COMPLAIN OF COUGH AND WANTED SOMETHING TO SLEEP. GAVE PT ROBITUSSIN PO AND AMBIEN PO. PT TOLERATED IT WELL. WILL CONTINUE TO MONITOR.
[2018-05-31 23:46] VITALS: BP 160/67
[2018-06-01 05:11] VITALS: BP 119/60
--- NOTE | 2018-06-01 06:30 | NUR ---
PT SITTING UP IN BED. NO COMPLAINT OF SHORTNESS OF BREATH AT THIS TIME. IV SITE CDI. WILL ENDORSE TO DAY SHIFT NURSE.
[2018-06-01 06:39] LABS: CALCIUM 8.7 mg/dL (8.5-10.1); CHLORIDE SERUM 106 mmol/L (98-107); CREATININE SERUM 1.4 mg/dL (0.6-1.0); GLUCOSE SERUM 92 mg/dL (74-106); POTASSIUM SERUM 4.2 mmol/L (3.5-5.1); SODIUM SERUM 143 mmol/L (136-145)
[2018-06-01 06:46] LABS: PLATELET COUNT 223 x10^3mcL (130-400); RED CELL DISTRIBUTION WIDTH 13.4 % (11.5-14.5)
--- NOTE | 2018-06-01 07:20 | NUR ---
RECEIVED PATIENT FROM WOOD TANK ERECTOR NURSE. PATIENT IS AWAKE, ALERT AND ORIENTED, RECEIVING BREATHING TREATMENT AT THIS TIME, NON PRODUCTIVE COUGH NOTED. PATIENT CONGESTED BILATERALLY, DENIES SOB AT THIS TIME. DARK DISCOLORATION NOTED TO BLE WITH DRY MULTIPLE SCABS NOTED. IV NOTED TO RAC, SALINE LOCKED, NO S/S REDNESS OR EDEMA AT SITE. CALL LIGHT WITHIN EASY REACH. WILL CONTINUE PLAN OF CARE.
[2018-06-01 08:33] VITALS: BP 129/78
[2018-06-01 12:04] VITALS: BP 165/74
[2018-06-01 12:19] LABS: BAND NEUTROPHIL 7 % (0-10); BASOPHIL 0 % (0-2); MONOCYTE 7 % (0-7); SEGMENTED NEUTROPHILS 80 % (37-75)
[2018-06-01 12:20] LABS: PLATELET MORPHOLOGY PLATELETS NORMAL
--- NOTE | 2018-06-01 13:59 | NUR ---
SPOKE WITH DR LEE REGARDING PATIENTS CONGESTION. LASIX IVP X1 TO BE GIVEN. ALSO DISCUSSED PLAN OF CARE AND WILL UPDATE EXTRACTOR OPERATOR PAULO.
--- NOTE | 2018-06-01 15:05 | NUR ---
PATIENT SITTING AT BEDSIDE AT THIS TIME. DENIES SOB AT REST. LASIX IVP GIVEN ORDERED, LS CONGESTED. CALL LIGHT WITHIN EASY REACH. WILL CONTINUE TO MONITOR.
[2018-06-01 16:30] VITALS: BP 150/82
--- NOTE | 2018-06-01 18:42 | NUR ---
PATIENT RESTING IN BED PEACEFULLY, AROUSABLE. REMAINS ON 2L NC, BREATHING EVEN AND UNLABORED. CALL LIGHT WITHIN EASY REACH. WILL ENDORSE PATIENT CARE TO SUPERVISOR PAIRING AND INSPECTING NURSE.
--- NOTE | 2018-06-01 19:15 | NUR ---
RECEIVED PT FROM PREVIOUS SHIFT NURSE. PT AOX4, FORGETFUL AT TIMES. DENIES SEVERINO/DIZZINESS. TELE #17, SR, HR 74. DENIES CP/PRESSURE. PULSES PALPABLE, NO EDEMA NOTED. LUNG SOUNDS CONGESTED, ON 2L NC. DENIES SOB/DIFFICULTY BREATHING. BOWEL SOUNDS ACTIVE. VOIDS FREELY. GEN WEAKNESS. AMBULATORY. BLE DARK DISCOLORATIONS AND SCATTERED SCABS. IV TO RAC, INTACT AND PATENT. BED IN LOWEST POSITION. CALL LIGHT WITHIN REACH. WILL CONTINUE TO MONITOR.
[2018-06-01 20:54] VITALS: BP 111/67
[2018-06-01 22:05] VITALS: BP 141/61
--- NOTE | 2018-06-02 01:35 | NUR ---
PT RESTING IN BED. RR EVEN AND UNLABORED. NO ACUTE DISTRESS NOTED. CALL LIGHT WITHIN REACH. BED IN LOWEST POSITION. WILL CONTINUE TO MONITOR.
[2018-06-02 05:40] VITALS: BP 126/55
[2018-06-02 07:31] LABS: PLATELET COUNT 249 x10^3mcL (130-400); RED CELL DISTRIBUTION WIDTH 13.5 % (11.5-14.5)
[2018-06-02 07:32] LABS: CALCIUM 8.7 mg/dL (8.5-10.1); CARBON DIOXIDE 34.6 mmol/L (21-32); CHLORIDE SERUM 102 mmol/L (98-107); CREATININE SERUM 1.4 mg/dL (0.6-1.0); GLUCOSE SERUM 166 mg/dL (74-106); SODIUM SERUM 141 mmol/L (136-145)
--- NOTE | 2018-06-02 07:38 | NUR ---
RECEIVED PT SLEEPING WITH HOB ELEVATED. NO ACUTE SIGNS OF DISTRESS NOTED. SALINE LOCK AT RAC, NO REDNESS OR SWELLING AT IV SITE. ON TELE 17 SHOWING NSR. WITH NC AT 2L/MIN. BED IN LOWEST POSITION AND CALL LIGHT WITHIN REACH. WILL CONTINUE TO MONITOR.
[2018-06-02 07:43] LABS: BASOPHIL % 0 % (0-2)
[2018-06-02 08:19] VITALS: BP 118/61
--- NOTE | 2018-06-02 11:24 | NUR ---
PT SITTING AT EDGE OF BED. REPORTED AND REQUESTED FOR COUGH MEDICINE. DENIES CHEST PAIN. MEDICATED ORDERED. REPOSITIONED INTO BED WITH HOB ELEVATED, COVERED WITH BLANKET. NC AT 2/MIN, . BED IN LOWEST POSITION AND CALL LIGHT WITHIN REACH. WILL CONTINUE TO MONITOR.
[2018-06-02 12:18] VITALS: BP 152/51
--- NOTE | 2018-06-02 14:45 | NUR ---
PHYSICAL THERAPY DAILY NOTES CO-SIGN All documentation done by the Advanced Registered Nurse for 06/02/18 has been reviewed. I agree with the documentation. Reviewed/Co-Signed by: Sue Trejo PT Documentation Done by:NASRA STOCKTON ORDERING BOX OPERATOR CO-SIGNED FOR THE DATE 06/01/18
[2018-06-02 16:50] VITALS: BP 128/59
--- NOTE | 2018-06-02 18:24 | NUR ---
PT SITTING IN CHAIR NEAR BEDSIDE. A/O X 3. DENIES SOB AND CHEST PAIN AT THIS TIME. NO ERYTHEMA OR SWELLING AT IV SITE. FAMILY MEMBER AT BEDSIDE, CALL LIGHT WITHIN REACH. WILL ENDORSE TO ONCOMING NURSE.
--- NOTE | 2018-06-02 19:20 | NUR ---
RECEIVED PT FROM PREVIOUS SHIFT NURSE. PT AOX4, FORGETFUL AT TIMES. DENIES SEVERINO/DIZZINESS AT THIS TIME. TELE #17, NSR, HR 71. DENIES CP/PRESSURE. PULSES PALPABLE, NO EDEMA NOTED. LUNG SOUNDS CONGESTED ON 2L NC. DENIES SOB/DIFFICULTY BREATHING. SOB NOTED UPON EXERTION. BOWEL SOUNDS ACTIVE. VOIDS FREELY. GEN WEAKNESS. AMBULATORY. BLE DARK DISCOLORATION AND SCABS NOTED. IV TO RAC, INTACT AND PATENT. BED IN LOWEST POSITION. CALL LIGHT WITHIN REACH. WILL CONTINUE TO MONITOR.
[2018-06-02 20:44] VITALS: BP 154/79
--- NOTE | 2018-06-03 01:33 | NUR ---
PT RESTING IN BED. RR EVEN AND UNLABORED. NO ACUTE DISTRESS NOTED. BED IN LOWEST POSITION. CALL LIGHT WITHIN REACH. WILL CONTINUE TO MONITOR.
[2018-06-03 05:41] VITALS: BP 134/69
[2018-06-03 07:03] LABS: PLATELET COUNT 264 x10^3mcL (130-400); RED CELL DISTRIBUTION WIDTH 13.7 % (11.5-14.5)
[2018-06-03 07:06] LABS: BASOPHIL % 0 % (0-2)
[2018-06-03 07:22] LABS: CALCIUM 8.9 mg/dL (8.5-10.1); CARBON DIOXIDE 34.2 mmol/L (21-32); CHLORIDE SERUM 103 mmol/L (98-107); CREATININE SERUM 1.4 mg/dL (0.6-1.0); GLUCOSE SERUM 120 mg/dL (74-106); POTASSIUM SERUM 4.1 mmol/L (3.5-5.1); SODIUM SERUM 143 mmol/L (136-145)
--- NOTE | 2018-06-03 07:40 | NUR ---
IV TO RAC LEAKING, NO ERYTHEMA OR SWELLING NOTED, DRSG APPLIED. NEW IV CATHETER#22 INSERTED TO RFA WITH GOOD BLD RETURNED AND FLUSHED WELL. NO ANY DISTRESS NOTED. O2 2LPM N/C MAINTAINED. DIMINISHED LUNG SOUND. RT PROTOCAL. TELE#17 NSR HR=65. DENIES PAIN. GEN BODY WEAKNESS NOTED ABLE TO PUSH HERSELF UP IN BED AND SIT AT THE EDGE OF BED. CALL LIGHT REINSTRUCTED AND PLACED WITHIN EASY REACH. SIDERAILS UP X2. WILL CONTINUE TO MONITOR.
[2018-06-03 09:31] VITALS: BP 164/71
--- NOTE | 2018-06-03 13:00 | NUR ---
SITTING UP AT THE EDGE OF BED HAVING LUNCH, FAMILY AT BEDSIDE, CURRENT CONDITION AND PLAN OF CARE UPDATED.
[2018-06-03 14:01] VITALS: BP 141/51
--- NOTE | 2018-06-03 15:30 | NUR ---
RESTING WITH EYES CLOSED IN BED. NO ANY DISTRESS NOTED.
[2018-06-03 17:14] VITALS: BP 141/51
--- NOTE | 2018-06-03 17:29 | NUR ---
REMAINS STABLE THROUGHOUT SHIFT. REFUSED O2 N/C AT THIS TIME, O2SAT CHECKED 96% ON ROOM AIR. ROBITUSSIN SYRYP GIVEN X2 FOR OCCATIONAL DRY COUGH WITH GOOD RELIEF. DENIES PAIN. ALL SCHEDULED MEDS GIVEN. IV S/L TO RFA FLUSHED PATENT AND INTACT.
[2018-06-03 18:15] VITALS: BP 150/68
--- NOTE | 2018-06-03 19:37 | NUR ---
RECEIVED PT FROM PREVIOUS SHIFT NURSE. PT AOX4, FORGETFUL AT TIMES. DENIES SEVERINO/DIZZINESS. TELE #17, NSR. DENIES CP/PRESSURE. PULSES PALPABLE, NO EDEMA NOTED. LUNG SOUNDS CONGESTED, ON 2L NC. DENIES SOB/DIFFICULTY BREATHING. BOWEL SOUNDS ACTIVE. VOIDS FREELY. GEN WEAKNESS. AMBULATORY. BLE DARK DISCOLORATION/SCABS NOTED. IV TO RFA, INTACT AND PATENT. CALL LIGHT WITHIN REACH. BED IN LOWEST POSITION. WILL CONTINUE TO MONITOR.
[2018-06-03 22:29] VITALS: BP 158/80
--- NOTE | 2018-06-04 03:30 | NUR ---
PT RESTING IN BED. RR EVEN AND UNLABORED. NO ACUTE DISTRESS NOTED. CALL LIGHT WITHIN REACH. BED IN LOWEST POSITION. WILL CONTINUE TO MONITOR.
[2018-06-04 04:32] VITALS: BP 122/71
--- NOTE | 2018-06-04 07:06 | NUR ---
RECEIVED REPORT FROM [place] OLIVIA. PT RESTING COMFORTABLY IN BED. IV IS PATENT AND INTACT. NO REDNESS OR PAIN. TELE # [address] PT DENIES CHEST PAIN. PT ON ROOM AIR BUT REQUESTING O2. O2 2L NC APPLIED. ALL OTHER NEEDS MET. ALL QUESTIONS AND CONCERNS ADDRESSED.
[2018-06-04 07:09] LABS: CALCIUM 8.5 mg/dL (8.5-10.1); CARBON DIOXIDE 33.8 mmol/L (21-32); CHLORIDE SERUM 102 mmol/L (98-107); CREATININE SERUM 1.4 mg/dL (0.6-1.0); GLUCOSE SERUM 100 mg/dL (74-106); SODIUM SERUM 138 mmol/L (136-145)
[2018-06-04 07:24] LABS: BASOPHIL % 0.1 % (0-2); PLATELET COUNT 243 x10^3mcL (130-400); RED CELL DISTRIBUTION WIDTH 13.5 % (11.5-14.5)
[2018-06-04 09:20] VITALS: BP 154/66
[2018-06-04 12:35] VITALS: BP 155/72
--- NOTE | 2018-06-04 16:22 | NUR ---
Initial Nutrition Assessment Dx: COPD Exacerbation PMHx: HTN, Asthma, Bronchitis, COPD, GERD, DM PSHx: None Labs: (06/04) Na 138, K 4, BG 100, BUN 37H, Cr 1.4H, Ca 8.5, WBC 16.3H, H/H 13.2/39 BG readings (06/02-06/04): 102-276 mg/dL with most readings >180 mg/dL; insulin coverage provided PRN. Meds: Ambien, Ativan, D50%, Humulin, Lantus, Macrobid, Morphine, Neurontin, [place], Normodyne, Phenegran, Robitussin, Solu-Medrol, Synthroid, Tylenol, Vitamin D, Zithromax, Heparin Diet: CCHO PO Intake: (06/04) B: 80% (06/03) B/D: 80% L: 100% (06/02) B: 90% L/D: 80% Ht: 62" (157 cm) Wt: 175# (79.4 kg) BMI: 32 (Obese Class I) IBW: 110# %IBW: 159% AJBW: 126# (57.4 kg) UBW: 170# Age: 87 y/o elderly female Food Allergies: NKFA Skin: Discolorations to BUE Mauro: 20 Edema: None GI: Last BM x 2 (06/03) Per H&P, pt. admitted with respiratory failure associated with COPD exacerbation. Otherwise, no acute events overnight per provider progress notes. Pt. noted with excellent appetite and good tolerance to diet order without reported GI distress. Problem with: No c/o N/V/D/C Problems with: Chewing: N Swallowing: N Current appetite: Excellent Recent wt change: None %wt change: N/A Vitamin/Supplement use: None Special diet at home: Regular/CCHO Physical activity: None d/t advanced age Education: No diet education provided; pt. noted with confusion and forgetfulness Estimated Nutritional Needs Based on adjusted body weight 57.4 kg: Energy: 6014-2470 kcal/d (25-30 kcal/kg- geriatric maintenance) Protein: 57-69 g/d (1.0-1.2 g/kg)-geriatric maintenance and preservation of lean body mass Fluid: 1733-7920 ml/d (1 ml/kcal-fluid balance) or per doctor Nutrition Diagnosis 1. Altered nutrition related laboratory values r/t endocrine dysfunction AEB accucheck readings mostly >180 mg/dL x 3 days and history of DM per H and P. Intervention/RD recommendations 1. Continue CCHO diet as ordered and as tolerated. If PO intake <75% by following assessment, will consider adding DM specific ONS for supplementation. Monitor/Evaluate Goal: PO intake at least 75% of estimated needs Monitor: PO intake, Labs, GI function, diet tolerance F/U in 3-5 days as moderate risk (06/07-06/09)
--- NOTE | 2018-06-04 16:23 | NUR ---
Intervention/RD recommendations 1. Continue CCHO diet as ordered and as tolerated. If PO intake <75% by following assessment, will consider adding DM specific ONS for supplementation.
[2018-06-04 17:42] VITALS: BP 131/64
--- NOTE | 2018-06-04 18:17 | NUR ---
IN TO SEE PATIENT AND ADMINISTER MEDICATION (SEE EMAR). PT RESTING COMFORTABLY IN BED. ALL NEEDS MET.
--- NOTE | 2018-06-04 19:20 | NUR ---
REPORT GIVEN TO ALISTAIR OLIVIA. PT SITTING COMFORTABLY IN CHAIR. ALL NEEDS MET. ALL QUESTIONS AND CONCERNS ADDRESSED. ALL CARES ENDORSED.
--- NOTE | 2018-06-04 20:00 | NUR ---
A/A/O X4. SITTING ON A CHAIR. PT DENIES DIZZINESS AND HEADACHE. COARSE CRACKLES NOTED RONNIE LUNGS. BREATHING EVEN AND UNLABORED ON ROOM AIR, SPO2 96%. CONGESTED COUGH NOTED. DENIES CHEST PAIN AND PRESSURE. BOWEL SOUNDS ACTIVE. NO C/O N/V AND ABD PAIN. DARK DISCOLORATION NOTED ON BLE. IV SALINE LOCK NOTED ON RIGHT FOREARM. MADE PT COMFORTABLE. PLACED CALL LIGHT WITH IN REACH. WILL CONTINUE TO MONITOR.
[2018-06-04 21:14] VITALS: BP 151/70
--- NOTE | 2018-06-04 22:08 | NUR ---
PT C/O COUGH. GAVE PT ROBITUSSIN PO. PT TOLERATED IT WELL. WILL CONTINUE TO MONITOR.
--- NOTE | 2018-06-05 01:34 | NUR ---
PT RESTING WITH EYES CLOSED. NO DISTRESS AND DISCOMFORT NOTED. WILL CONTINUE TO MONITOR.
[2018-06-05 04:48] VITALS: BP 144/66
--- NOTE | 2018-06-05 08:11 | NUR ---
PHYSICAL THERAPY DAILY NOTES CO-SIGN All documentation done by the Medical Administrative Technician for 06/05/18 has been reviewed. I agree with the documentation. Reviewed/Co-Signed by: Sue Trejo PT Documentation Done by:NASRA STOCKTON MANAGER CRITICAL CARE CO-SIGNED FOR THE DATE 06/02/18
--- NOTE | 2018-06-05 08:21 | NUR ---
PHYSICAL THERAPY DAILY NOTES CO-SIGN All documentation done by the Foam Charger for 06/05/18 has been reviewed. I agree with the documentation. Reviewed/Co-Signed by: Sue Trejo PT Documentation Done by:NASRA STOCKTON OTHER SPATIAL SCIENTIST CO-SIGNED FOR THE DATE 06/04/18
--- NOTE | 2018-06-05 08:50 | NUR ---
PT ON BED, AWAKE, ALERT, AND ORIENTED. HAS NO COMPLAINT OF PAIN, SOB, OR DIZZINESS. PT DOES COMPLAIN OF DRY SKIN AND ITCHINESS ON THE BUE. TO BE MADE AWARE. CRACKLES NOTED RONNIE LUNG FIELD, DRY COUGH NOTED, SYMMETRICAL CHEST EXPANSION AND UNLABORED. PT ON RA, SATURATION AT 91%. RT PROTOCOL IN PLACE. BLE DRAK DISCOLORATION NOTED. ACTIVE BOWEL SOUNDS NOTED. NON DISTENDED ABDOMEN. SIDE RAILS UP, CALL LIGHT WITHIN REACH, WILL CONTINUE TO MONITOR
[2018-06-05 08:59] VITALS: BP 137/61
[2018-06-05 12:23] VITALS: BP 138/70
[2018-06-05 12:26] VITALS: BP 150/64
[2018-06-05 14:54] VITALS: BP 150/64
== END 2018-06-05 15:41 | disposition home or self-care (01) | DRG 177 ==
LOC: ED 18:59 → DU 21:45
PROVIDERS: Emergency Medicine; ADMIT Internal Medicine
DX: J69.0 Pneumonitis due to inhalation of food and vomit (principal); J96.01 Acute respiratory failure with hypoxia; J44.1 Chronic obstructive pulmonary disease with (acute) exacerbation; N39.0 Urinary tract infection, site not specified; E87.2 Acidosis; J20.9 Acute bronchitis, unspecified; E11.65 Type 2 diabetes mellitus with hyperglycemia; K21.9 Gastro-esophageal reflux disease without esophagitis; E03.9 Hypothyroidism, unspecified; I10 Essential (primary) hypertension; Z79.4 Long term (current) use of insulin; Z68.34 Body mass index [BMI] 34.0-34.9, adult; Z91.14 Patient's other noncompliance with medication regimen
CPT/HCPCS: 36600; 82962; 83880; 97110-GP; 97116-GP; 97530-GP; J0456; J1644; J1815; J1940; J2920; J2930; J7050; J7613; J7620; J7626; J7644; Q0092